=== PATIENT | female | born 1985 | race Caucasian/White ===

== ENCOUNTER → 2024-05-31 | Outpatient (CLI) | payer OTHER | LOC: LAB 15:45 → LAB SHORT 15:45 | DX: L08.9 Local infection of the skin and subcutaneous tissue, unspecified (principal); Z12.83 Encounter for screening for malignant neoplasm of skin; L57.8 Other skin changes due to chronic exposure to nonionizing radiation; L85.3 Xerosis cutis; L72.0 Epidermal cyst; L91.8 Other hypertrophic disorders of the skin | CPT/HCPCS: 87070; 87077; 87186; 87205 ==